=== PATIENT | female | born 1980 | race African-American/Black ===

== ENCOUNTER 2016-11-21 20:52 | Emergency (ER) | payer MEDICARE, MEDICAID ==
[2016-11-21 21:10] VITALS: TEMP 98.8; BMI 54.6
[2016-11-21] MEDS ORDERED: MORPHINE 4 MG/ML INJECTION IV ONE (22:36)
[2016-11-21] MEDS ORDERED: ONDANSETRON HCL 4 MG/2 ML VIAL IV ONE (22:36)
[2016-11-21] MEDS ORDERED: METHYLPREDNISOLONE 125 MG/2 ML VIAL IV ONE (22:36)
[2016-11-21] MEDS ORDERED: NS 1,000 ML IV ONE (22:36)
[2016-11-21] MEDS ORDERED: Albuterol/Ipratropium Neb 3 ML NEB NEB ONE (22:36)
--- NOTE | 2016-11-21 22:36 | EDPRACDOC ---
- General Information Chief Complaint: Dyspnea/Resp distress Stated Complaint: N/V/D SHOB FEVER Time Seen by Provider: 11/21/16 22:30 Mode Of Arrival: Car Home Medications: Home Medications Albuterol Sulfate [Ventolin] 2.5 mg NEB Q4H 04/10/13 Alprazolam [Xanax] 1 mg PO TID 04/10/13 Cetirizine HCl 10 mg PO DAILY 04/10/13 POTASSIUM CHLORIDE Tablet [K-DUR 20 mEq Tablet*] 20 meq PO DAILY 04/10/13 Sildenafil Citrate [Viagra] 25 mg PO DAILY 08/05/14 Aspirin [Aspirin EC] 81 mg PO DAILY 07/06/16 Spironolactone [Aldactone] 25 mg PO DAILY 07/06/16 Torsemide 60 mg PO DAILY 07/06/16 Azithromycin [Zithromax] 0 mg PO DAILY #6 tablet 11/22/16 Hydrocodone Bit/Homatropine [Hycodan Syrup] 5 ml PO Q6 PRN #120 syrup 11/22/16 Prednisone [Deltasone, Orasone] 40 mg PO DAILY 5 Days 11/22/16 Allergies/Adverse Reactions: Allergies Allergy/AdvReac Type Severity Reaction Status Date / Time meloxicam [From Mobic] Allergy Severe Hives* Verified 11/21/16 21:05 nitrofurantoin Allergy Mild Nausea/Vomi Verified 11/21/16 21:05 [From Macrobid] ting nitrofurantoin Allergy Mild Nausea/Vomi Verified 11/21/16 21:05 macrocrystalline ting [From Macrobid] benzonatate Allergy Rash-Genera Verified 11/21/16 21:05 [From Ata Mary] lized - History of Present Illness Onset: YESTERDAY HPI: PT COMPLAINS OF FEVER TO 102, COUGH PROD OF GREEN PHLEGM, N/V, BODY PAINS, UPPER ABD PAIN, UNABLE TO TOLERATE PO INTAKE, SOBR, PAIN IN HER CHEST, USING NEBS AT HOME WITHOUT RELIEF. Shortness of Breath: Severe Relevant History: Reports: Heart Failure (CHF), Other (SARCOIDOSIS) Cough: Reports: Productive, Green Rhinorrhea: Reports: Clear Ear Symptoms: Reports: None SOB Worsens with: Reports: Nothing SOB Improves with: Reports: Nothing Associated Signs and symptoms: Reports: Cough, Fever, Headache, Nasal Symptoms, Myalgia. Denies: Earache, Sore Throat, Nausea, Vomiting, Diarrhea, Rash, Pain with head movement, AMS ED Past Medical History - History Reviewed Yes Nurses notes reviewed and agree except as marked - Patient Medical History Cardiac History: Reports: Hypertension, Congestive Heart Failure Respiratory History: Reports: Other. Denies: Asthma Musculoskeletal History: Reports: Arthritis (KNEES) Psychological History: Reports: Anxiety. Denies: Depression Systemic History: Denies: Cancer Additional Past Medical History: CHRONIC BACK PAIN. CHRONIC KNEE PAIN Surgical History: Reports: Other (CSXN). Denies: Hysterectomy - Family Medical History Reports: Hypertension, Diabetes, Cancer, Cardiac Disorders - Social Medical History Smoking Status: Former smoker ETOH: None Substance Abuse: None EDM Review of Systems - Review of Systems Constitutional: Chills, Fever Eyes: negative: Blurred Vision, Double Vision Ears: negative: Drainage Throat: negative: Pain Nose: Congestion. negative: Discharge Respiratory: Cough, Shortness of Breath, Wheezing Cardiovascular: Chest Pain. negative: Palpitations Gastrointestinal: Nausea, Pain, Vomiting Genitourinary: negative: Dysuria, Frequency Neurological: Headache. negative: Dizziness, Numbness, Weakness Musculoskeletal: No Symptoms Reported Integumentary: No Symptoms Reported - Physical Exam Constitutional: Alert (Awake), No apparent distress Oriented to: Time, Person, Place Last recorded Vital Signs: Last Vital Signs Temp 98.8 F 11/21/16 21:05 Pulse 97 11/21/16 21:05 Resp 22 11/21/16 21:05 BP 132/70 11/21/16 21:05 Pulse Ox 97 11/21/16 21:05 Oxygen Pulse Oxygen Saturation 97 O2 Device Nasal Cannula Oxygen Flow Rate 5 Fraction of Inspired Oxygen ( FIO2) - HEENT Head: Normal ( normocephalic) Eye Exam: Normal (PERRL, EOMI, Sclera white) Oropharynx: Normal (Pharynx:Moist without exudate,Gums-no swelling) Tympanic Membrane: Normal ENT EAC: Normal TMJ: Normal Nose: No Symptoms Reported (septum midline) Neck: Normal (FROM, trachea at midline) - Respiratory/Cardiovascular Respiratory: Wheezes. negative: Retractions Cardiovascular: Normal (RRR without murmur, gallop or rub) - GI Auscultation: Normal (NABS) Palpation: Normal (Soft,No rebound or guarding, non distended) Tenderness: Diffuse, Mild. negative: Guarding, Rebound, Rigidity Alvares's Sign: Negative - Musculoskeletal Back: Normal (Non-Tender) Extremities: Normal (Normal tone, Pulses 2+ No cyanosis or edema, FROM) - Integumentary Skin: Normal, Warm, Dry Lymphatics: Normal (no adenopathy) - Neurologic Memory Impaired: Normal Motor Function: Normal (Normal tone, Pulses 2+ No cyanosis or edema, FROM) Cranial Nerve: Normal (CN II-X11 intact sensation, strength 5/5) Cerebellar: Normal Mood Description: Normal Perception: Normal ED SOB MDM - Differential Diagnosis Differential Diagnosis: Asthma, Pnuemonia, Pneumothorax - Re-evaluation Re-evaluation 1 Re-evaluation Time: 23:55 (BETTER AFTER NEB, RESTING QUIETLY ON CELLPHONE) - Results Result Diagrams: 11/21/16 23:05 11/21/16 23:05 Results: 11/22/16 00:18 Laboratory Results - last 24 hr 11/21/16 11/21/16 11/21/16 23:05 23:05 23:05 WBC 8.6 RBC 4.58 Hgb 12.0 Hct 38.4 MCV 84 MCH 26.1 L MCHC 31.2 L RDW 16.6 H Plt Count 260 MPV 8.8 Neut % (Auto) 68.3 Lymph % (Auto) 21.4 [place] % (Auto) 8.6 Eos % (Auto) 1.5 Baso % (Auto) 0.2 Absolute Neuts (auto) 5.85 Absolute Lymphs (auto) 1.81 PT 11.7 H INR 1.1 APTT 27.7 Sodium 139 Potassium 4.2 Chloride 103 Carbon Dioxide 30 Anion Gap 10 BUN 9 Creatinine 0.80 Estimated GFR (MDRD) > 60 Glucose 87 Calculated Osmolality 266 L Calcium 9.1 Corrected Calcium 9.5 Total Bilirubin 0.4 AST 15 ALT 24 Alkaline Phosphatase 57 Troponin I < 0.01 Ove-Z-Qhaispzlbiu Pept 1090 H Total Protein 7.2 Albumin 3.6 - EKG EKG #1 EKG Time: 21:13 -: Yes EKG interpreted by me Rate: bpm: 88 Arnold: Normal Rhythm: NSR Block: None Hypertrophy: None ST: Nonsp Comparison: 04/10/13 (NO CHANGE) - Diagnostic Imaging CXR Image interpreted by: Radiologist Diagnostic Imaging Comments: PORTABLE CHEST 1 VIEW COMPARISON: 01/24/2015. FINDINGS: 01/12/2017 hrs. Architectural distortion with chronic interstitial and airspace opacity, right greater than left. Bullous change in the left apex is stable. Chronic disease in left lung base is unchanged. There is increase right paratracheal opacity today which may be related to the rightward rotation on today's study. The cardio pericardial silhouette is enlarged. The visualized bony structures of the thorax are intact. IMPRESSION: Stable bilateral but asymmetric parenchymal scarring. Right paratracheal opacity is new in the interval but this may be in part related to rightward patient rotation. Dedicated PA and lateral chest x-ray recommended when the patient is able. Decision Time to Discharge: 00:18 - Departure Disposition: Home Condition: Stable Final Diagnosis: Acute bronchitis Instructions: Acute Bronchitis (ED) Education/Counseling Given To: Patient Education/Counseling Given Regarding: Diagnosis, Treatment, Prognosis, Follow Up Referrals: Mike Velasco PA [Primary Care Provider] - One Week Prescriptions: New Azithromycin [Zithromax] 0 mg PO DAILY #6 tablet Hydrocodone Bit/Homatropine [Hycodan Syrup] 5 ml PO Q6 PRN #120 syrup PRN Reason: Cough Prednisone [Deltasone, Orasone] 40 mg PO DAILY 5 Days Continue Albuterol Sulfate [Ventolin] 2.5 mg NEB Q4H POTASSIUM CHLORIDE Tablet [K-DUR 20 mEq Tablet*] 20 meq PO DAILY Cetirizine HCl 10 mg PO DAILY Alprazolam [Xanax] 1 mg PO TID Sildenafil Citrate [Viagra] 25 mg PO DAILY Spironolactone [Aldactone] 25 mg PO DAILY Aspirin [Aspirin EC] 81 mg PO DAILY Torsemide 60 mg PO DAILY Additional Instructions: REST, DRINK PLENTY OF FLUIDS, USE TYLENOL OR MOTRIN NEEDED FOR PAIN OR FEVER , RETURN TO THE ED FOR ANY WORSENING SYMPTOMS OR CONCERNS.
[2016-11-21 23:22] LABS: AUTOMATED BASOPHIL 0.2 % (0-2); AUTOMATED EOSINOPHIL 1.5 % (0-5); AUTOMATED LYMPH 21.4 % (17-44); AUTOMATED MONOCYTE 8.6 % (3-10); AUTOMATED NEUTROPHIL 68.3 % (45-76); MPV 8.8 fL (7.4-10.4)
--- NOTE | 2016-11-21 23:43 | DIRPT ---
CLINICAL DATA: Shortness of breath and fever. Productive cough. EXAM: PORTABLE CHEST 1 VIEW COMPARISON: 01/24/2015. FINDINGS: 01/12/2017 hrs. Architectural distortion with chronic interstitial and airspace opacity, right greater than left. Bullous change in the left apex is stable. Chronic disease in left lung base is unchanged. There is increase right paratracheal opacity today which may be related to the rightward rotation on today's study. The cardio pericardial silhouette is enlarged. The visualized bony structures of the thorax are intact. IMPRESSION: Stable bilateral but asymmetric parenchymal scarring. Right paratracheal opacity is new in the interval but this may be in part related to rightward patient rotation. Dedicated PA and lateral chest x-ray recommended when the patient is able. Electronically Signed By: Fabian Umanzor M.D. On: 11/21/2016 23:40
[2016-11-21 23:44] LABS: PARTIAL THROMB. TIME 27.7 SEC (22-35); PT-INR 1.1
[2016-11-21 23:46] LABS: BLOOD UREA NITROGEN 9 MG/DL (7-17); CALC CORRECTED 9.5 MG/DL (8.4-10.2); CALCIUM 9.1 MG/DL (8.4-10.2); CALCULATED OSMOLALITY 266 MOs/Kg (270-290); CHLORIDE 103 mEq/L (98-107); GLUCOSE 87 MG/DL (70-99); SODIUM LEVEL 139 mEq/L (137-146); TOTAL PROTEIN 7.2 G/DL (6.3-8.2)
[2016-11-22 00:09] VITALS: BP 119/59
[2016-11-22] MEDS ORDERED: AZITHROMYCIN 250 MG TAB PO ONE (00:20)
[2016-11-22] MEDS ORDERED: HYDROCODONE 5 MG/ACETAMIN 325 MG TAB PO ONE (00:20)
[2016-11-22 00:43] VITALS: PULSE 62
== END 2016-11-22 00:42 | disposition home or self-care (01) ==
LOC: ED 20:52
DX: J20.9 Acute bronchitis, unspecified (principal)
CPT/HCPCS: 36415; 71010; 80053; 83880; 84484; 85025; 85610; 85730; 87804; 93005; 94640; 96361; 96374; 96375; 99284; A9270; J2270; J2405; J2930; J7620; J3490